=== PATIENT | female | born 1945 | race Caucasian/White ===

== ENCOUNTER 2016-06-06 09:49 | Inpatient (IN) | payer MEDICARE, OTHER ==
[~2016-06-06] VITALS: Ht 172.7 cm; Wt 74.2 kg
[~2016-06-06 09:49] MED LIST: ATOR40TA78 PO; CARV3.122 PO; CARV6.2512 PO; CLON0.5T PO; CYAN100028 PO; DOCU-30 PO; DOCU100C8 PO; ERTA1VIA IV; FERR325T20 PO; GABA600T2 PO; HYDR-3138 PO; HYDR-3240 PO; HYDR2VIA2 IV; INSU100C SQ-INSULIN; INSU100V5 SQ-INSULIN; L.AC1CAP6 PO; LEVO50TA PO; LINE600T7 PO; LOSA25TA2 PO; MELA3TAB37 PO; OMEP-110 PO; PANT40TA3 PO
[2016-06-06] MEDS ORDERED: SODIUM CHLORIDE 0.9% 1,000 ML IV ONE ×2 (09:55→12:15)
[2016-06-06] MEDS ORDERED: SODIUM CHLORIDE FLUSH 10ML SYR IVF ONE (10:00)
[2016-06-06] MEDS ORDERED: PLEASE ENTER HEIGHT AND WEIGHT MC SCH (10:00)
[2016-06-06] MEDS ORDERED: ATOR10TA PO (10:25)
[2016-06-06] MEDS ORDERED: CARV12.543 PO (10:26)
[2016-06-06] MEDS ORDERED: OXYC-302 PO (10:27)
[2016-06-06] MEDS ORDERED: CIPR500T3 PO (10:32)
[2016-06-06] MEDS ORDERED: GLIM1TAB2 PO (10:32)
[2016-06-06] MEDS ORDERED: LINA5TAB PO (10:32)
[2016-06-06] MEDS ORDERED: MAGN400T7 PO (10:33)
[2016-06-06] MEDS ORDERED: ASCO500T8 PO (10:33)
[2016-06-06] MEDS ORDERED: IBUP200T5 PO (10:37)
[2016-06-06 10:46] LABS: ASPARTATE AMINO TRANSFERASE 15 U/L (15-37); BLOOD UREA NITROGEN 24 mg/dL (7-18)
[2016-06-06] MEDS ORDERED: SODIUM CHLORIDE 0.9% 1,000ML IVBOLUS ONE (11:00)
[2016-06-06] MEDS ORDERED: CEFTRIAXONE PMX 1GM/50ML 50 ML IVPB ONE (12:00)
[2016-06-06] MEDS ORDERED: CEFTRIAXONE PMX 1GM/50ML 50 ML ONE (12:13)
[2016-06-06] MEDS ORDERED: SODIUM CHLORIDE FLUSH 10ML SYR IVF PRN (12:30)
[2016-06-06 15:10] VITALS: BP 119/68
[2016-06-06] MEDS ORDERED: PHARMACY MAY ADJ FOR RENAL FX MC PRN (16:30)
[2016-06-06] MEDS ORDERED: DEXTROSE 50%, 50ML SYRINGE IVPush PRN (17:00)
[2016-06-06] MEDS ORDERED: DEXTROSE 4 GM TAB.CHEW PO PRN (17:00)
[2016-06-06] MEDS ORDERED: HYDROcodone/APAP 5/325 TABLET PO PRN (17:00)
[2016-06-06] MEDS ORDERED: ONDANSETRON 2MG/ML, 2ML IVP PRN (17:00)
[2016-06-06] MEDS: INSULIN ASPART 100 UNITS/ML, PEN SQ-INSULIN SCH ×2 (17:00→21:00)
[2016-06-06] MEDS ORDERED: POLYETHYLENE GLYCOL 17 GM PACKET PO PRN (17:00)
[2016-06-06] MEDS ORDERED: GLUCAGON 1 MG IM PRN (17:00)
[2016-06-06] MEDS ORDERED: BISACODYL 10 MG SUPP PR PRN (17:00)
[2016-06-06] MEDS ORDERED: PROMETHAZINE 25 MG/ML, 1ML IM PRN (17:00)
[2016-06-06] MEDS: MEROPENEM 1 GM in SODIUM CHLORIDE 0.9% 100 ML IV SCH (17:58)
[2016-06-06] MEDS: SODIUM CHLORIDE 0.9% 1,000 ML IV SCH (17:58)
[2016-06-06 19:01] VITALS: BP 124/76
[2016-06-06] MEDS ORDERED: ATORVASTATIN 10 MG TABLET PO SCH (21:00)
[2016-06-06] MEDS: DAPTOMYCIN 300 MG in SODIUM CHLORIDE 0.9% 100 ML IVPB SCH (21:55)
[2016-06-06] MEDS: SODIUM CHLORIDE FLUSH 10ML SYR IVF SCH (21:56)
[2016-06-06] MEDS: GABAPENTIN 300 MG CAPSULE PO SCH (21:56)
[2016-06-06] MEDS: CARVEDILOL 12.5 MG TABLET PO SCH (21:56)
[2016-06-06] MEDS: FERROUS SULFATE 325 MG TABLET PO SCH (21:56)
[2016-06-06] MEDS: ASCORBIC ACID 500 MG TABLET PO SCH (21:56)
[2016-06-07 01:45] VITALS: BP 147/74
[2016-06-07] MEDS: SODIUM CHLORIDE 0.9% 1,000 ML IV SCH ×2 (02:57→17:06)
[2016-06-07] MEDS: MEROPENEM 1 GM in SODIUM CHLORIDE 0.9% 100 ML IV SCH ×3 (02:57→20:59)
[2016-06-07] MEDS: LEVOTHYROXINE 50 MCG TABLET PO SCH (05:52)
[2016-06-07 06:15] LABS: ASPARTATE AMINO TRANSFERASE 21 U/L (15-37); BLOOD UREA NITROGEN 20 mg/dL (7-18)
[2016-06-07] MEDS: INSULIN ASPART 100 UNITS/ML, PEN SQ-INSULIN SCH ×4 (07:30→21:00)
[2016-06-07 08:06] VITALS: BP 130/62
[2016-06-07] MEDS: FERROUS SULFATE 325 MG TABLET PO SCH ×2 (09:43→20:59)
[2016-06-07] MEDS: GABAPENTIN 300 MG CAPSULE PO SCH ×2 (09:43→20:59)
[2016-06-07] MEDS: SODIUM CHLORIDE FLUSH 10ML SYR IVF SCH ×2 (09:44→21:00)
[2016-06-07] MEDS: CARVEDILOL 12.5 MG TABLET PO SCH ×2 (09:44→20:59)
[2016-06-07] MEDS: ASCORBIC ACID 500 MG TABLET PO SCH ×2 (09:44→21:00)
[2016-06-07 13:19] VITALS: BP 127/70
[2016-06-07 19:11] VITALS: BP 164/72
[2016-06-08] MEDS: SODIUM CHLORIDE 0.9% 1,000 ML IV SCH ×2 (01:18→12:30)
[2016-06-08 04:34] VITALS: BP 157/73
[2016-06-08] MEDS: MEROPENEM 1 GM in SODIUM CHLORIDE 0.9% 100 ML IV SCH ×2 (05:21→13:03)
[2016-06-08] MEDS: LEVOTHYROXINE 50 MCG TABLET PO SCH (05:21)
[2016-06-08 06:13] LABS: BLOOD UREA NITROGEN 19 mg/dL (7-18)
[2016-06-08] MEDS: INSULIN ASPART 100 UNITS/ML, PEN SQ-INSULIN SCH ×4 (07:00→21:00)
[2016-06-08 08:33] VITALS: BP 174/80
[2016-06-08] MEDS: FERROUS SULFATE 325 MG TABLET PO SCH ×2 (08:49→21:43)
[2016-06-08] MEDS: CARVEDILOL 12.5 MG TABLET PO SCH (08:50)
[2016-06-08] MEDS: GABAPENTIN 300 MG CAPSULE PO SCH ×2 (08:50→21:43)
[2016-06-08] MEDS: ASCORBIC ACID 500 MG TABLET PO SCH ×2 (08:50→21:43)
[2016-06-08] MEDS: SODIUM CHLORIDE FLUSH 10ML SYR IVF SCH ×2 (08:51→21:43)
[2016-06-08 15:45] VITALS: BP 175/76
[2016-06-08] MEDS: DAPTOMYCIN 300 MG in SODIUM CHLORIDE 0.9% 100 ML IVPB SCH (17:32)
[2016-06-08] MEDS: CARVEDILOL 25 MG TABLET PO SCH (18:39)
[2016-06-08 19:45] VITALS: BP 179/78
[2016-06-08] MEDS: MICAFUNGIN 100 MG in SODIUM CHLORIDE 0.9% 100 ML IV SCH (21:42)
[2016-06-08 23:18] VITALS: BP 166/77
[2016-06-09 01:39] VITALS: BP 135/74
[2016-06-09] MEDS: LEVOTHYROXINE 50 MCG TABLET PO SCH (05:14)
[2016-06-09] MEDS: CARVEDILOL 25 MG TABLET PO SCH ×2 (05:14→17:05)
[2016-06-09 05:40] LABS: BLOOD UREA NITROGEN 17 mg/dL (7-18)
[2016-06-09 07:13] VITALS: BP 131/80
[2016-06-09] MEDS: INSULIN ASPART 100 UNITS/ML, PEN SQ-INSULIN SCH ×4 (08:30→22:00)
[2016-06-09] MEDS: FERROUS SULFATE 325 MG TABLET PO SCH ×2 (09:21→21:04)
[2016-06-09] MEDS: ASCORBIC ACID 500 MG TABLET PO SCH ×2 (09:21→21:04)
[2016-06-09] MEDS: GABAPENTIN 300 MG CAPSULE PO SCH ×2 (09:21→21:04)
[2016-06-09] MEDS: SODIUM CHLORIDE FLUSH 10ML SYR IVF SCH ×2 (09:21→21:04)
[2016-06-09 13:53] VITALS: BP 133/84
[2016-06-09 18:40] VITALS: BP 134/78
[2016-06-09] MEDS: MICAFUNGIN 100 MG in SODIUM CHLORIDE 0.9% 100 ML IV SCH (21:04)
[2016-06-10 01:41] VITALS: BP 150/79
[2016-06-10] MEDS: LEVOTHYROXINE 50 MCG TABLET PO SCH (05:42)
[2016-06-10] MEDS: CARVEDILOL 25 MG TABLET PO SCH ×2 (05:43→18:21)
[2016-06-10 06:54] VITALS: BP 148/82
[2016-06-10] MEDS: INSULIN ASPART 100 UNITS/ML, PEN SQ-INSULIN SCH ×4 (07:00→20:34)
[2016-06-10] MEDS: ASCORBIC ACID 500 MG TABLET PO SCH ×2 (08:26→20:33)
[2016-06-10] MEDS: FERROUS SULFATE 325 MG TABLET PO SCH ×2 (08:26→20:33)
[2016-06-10] MEDS: GABAPENTIN 300 MG CAPSULE PO SCH ×2 (08:26→20:33)
[2016-06-10] MEDS: SODIUM CHLORIDE FLUSH 10ML SYR IVF SCH ×2 (08:27→20:34)
[2016-06-10 12:44] VITALS: BP 143/86
[2016-06-10] MEDS: VANCOMYCIN 50 MG/ML ORAL SUSP PO SCH ×2 (15:05→20:33)
[2016-06-10 19:00] VITALS: BP 138/68
[2016-06-10] MEDS: DAPTOMYCIN 300 MG in SODIUM CHLORIDE 0.9% 100 ML IVPB SCH (20:33)
[2016-06-11 02:13] VITALS: BP 146/79
[2016-06-11] MEDS: VANCOMYCIN 50 MG/ML ORAL SUSP PO SCH ×4 (04:10→22:45)
[2016-06-11] MEDS: LEVOTHYROXINE 50 MCG TABLET PO SCH (06:05)
[2016-06-11] MEDS: CARVEDILOL 25 MG TABLET PO SCH ×2 (06:06→18:38)
[2016-06-11 06:38] VITALS: BP 140/70
[2016-06-11] MEDS: INSULIN ASPART 100 UNITS/ML, PEN SQ-INSULIN SCH ×4 (07:00→21:00)
[2016-06-11] MEDS: ASCORBIC ACID 500 MG TABLET PO SCH ×2 (10:03→22:45)
[2016-06-11] MEDS: GABAPENTIN 300 MG CAPSULE PO SCH ×2 (10:04→22:45)
[2016-06-11] MEDS: FERROUS SULFATE 325 MG TABLET PO SCH ×2 (10:04→22:45)
[2016-06-11] MEDS: FLUCONAZOLE 200 MG TABLET PO SCH (10:05)
[2016-06-11] MEDS: SODIUM CHLORIDE FLUSH 10ML SYR IVF SCH ×2 (10:06→22:45)
[2016-06-11 12:46] VITALS: BP 153/76
[2016-06-11] MEDS: ENOXAPARIN 40 MG/0.4 ML SQ SCH (15:53)
[2016-06-12] MEDS: VANCOMYCIN 50 MG/ML ORAL SUSP PO SCH ×4 (03:30→20:18)
[2016-06-12 04:30] VITALS: BP 149/77
[2016-06-12] MEDS: CARVEDILOL 25 MG TABLET PO SCH ×2 (05:15→17:30)
[2016-06-12] MEDS: LEVOTHYROXINE 50 MCG TABLET PO SCH (05:15)
[2016-06-12 06:57] VITALS: BP 105/65
[2016-06-12] MEDS: INSULIN ASPART 100 UNITS/ML, PEN SQ-INSULIN SCH ×4 (07:00→20:17)
[2016-06-12 07:04] LABS: ASPARTATE AMINO TRANSFERASE 18 U/L (15-37); BLOOD UREA NITROGEN 17 mg/dL (7-18); C-REACTIVE PROTEIN, QUANT 0.56 mg/dL (0.02-0.49)
[2016-06-12] MEDS: GABAPENTIN 300 MG CAPSULE PO SCH ×2 (08:24→20:18)
[2016-06-12] MEDS: FLUCONAZOLE 200 MG TABLET PO SCH (08:25)
[2016-06-12] MEDS: FERROUS SULFATE 325 MG TABLET PO SCH ×2 (08:25→20:18)
[2016-06-12] MEDS: ASCORBIC ACID 500 MG TABLET PO SCH ×2 (08:25→20:18)
[2016-06-12] MEDS: SODIUM CHLORIDE FLUSH 10ML SYR IVF SCH ×2 (08:28→20:18)
[2016-06-12 12:49] VITALS: BP 154/75
[2016-06-12] MEDS ORDERED: POTASSIUM CHLORIDE 20 MEQ TAB.ER.PRT PO ONE (13:30)
[2016-06-12] MEDS: ENOXAPARIN 40 MG/0.4 ML SQ SCH (15:37)
[2016-06-12 19:49] VITALS: BP 136/77
[2016-06-12] MEDS: DAPTOMYCIN 300 MG in SODIUM CHLORIDE 0.9% 100 ML IVPB SCH (20:08)
[2016-06-13 02:13] VITALS: BP 166/83
[2016-06-13] MEDS: VANCOMYCIN 50 MG/ML ORAL SUSP PO SCH ×4 (03:37→21:32)
[2016-06-13 04:01] LABS: BLOOD UREA NITROGEN 24 mg/dL (7-18)
[2016-06-13] MEDS: CARVEDILOL 25 MG TABLET PO SCH ×2 (06:05→18:26)
[2016-06-13] MEDS: LEVOTHYROXINE 50 MCG TABLET PO SCH (06:05)
[2016-06-13] MEDS: SODIUM CHLORIDE 0.9% 1,000 ML IV SCH ×2 (07:30→21:24)
[2016-06-13 07:42] VITALS: BP 158/78
[2016-06-13] MEDS: ASCORBIC ACID 500 MG TABLET PO SCH ×2 (08:27→21:32)
[2016-06-13] MEDS: GABAPENTIN 300 MG CAPSULE PO SCH ×2 (08:27→21:32)
[2016-06-13] MEDS: FERROUS SULFATE 325 MG TABLET PO SCH ×2 (08:27→21:32)
[2016-06-13] MEDS: FLUCONAZOLE 200 MG TABLET PO SCH (08:27)
[2016-06-13] MEDS: INSULIN ASPART 100 UNITS/ML, PEN SQ-INSULIN SCH ×4 (08:45→21:33)
[2016-06-13] MEDS: SODIUM CHLORIDE FLUSH 10ML SYR IVF SCH ×2 (09:00→21:00)
[2016-06-13] MEDS ORDERED: PENICILLIN VK 250 MG PO ONE (10:00)
[2016-06-13] MEDS ORDERED: HYDROCORTISONE 100 MG INJ. IVPush ONE (13:00)
[2016-06-13] MEDS ORDERED: DIPHENHYDRAMINE 50 MG/ML, 1ML IVPush ONE ×2 (13:00)
[2016-06-13 13:12] VITALS: BP 127/78
[2016-06-13] MEDS: ENOXAPARIN 40 MG/0.4 ML SQ SCH (16:57)
[2016-06-13] MEDS: AMPICILLIN/SULBACTAM 3 GM in SODIUM CHLORIDE 0.9% 100 ML IV SCH ×2 (16:57→21:33)
[2016-06-13 19:20] VITALS: BP 166/88
[2016-06-14 02:13] VITALS: BP 145/74
[2016-06-14 03:05] LABS: BLOOD UREA NITROGEN 26 mg/dL (7-18)
[2016-06-14] MEDS: LEVOTHYROXINE 50 MCG TABLET PO SCH (05:38)
[2016-06-14] MEDS: VANCOMYCIN 50 MG/ML ORAL SUSP PO SCH ×4 (05:38→20:35)
[2016-06-14] MEDS: CARVEDILOL 25 MG TABLET PO SCH ×2 (05:38→17:25)
[2016-06-14] MEDS: SODIUM CHLORIDE 0.9% 1,000 ML IV SCH (05:38)
[2016-06-14] MEDS: AMPICILLIN/SULBACTAM 3 GM in SODIUM CHLORIDE 0.9% 100 ML IV SCH ×3 (05:38→22:30)
[2016-06-14] MEDS: INSULIN ASPART 100 UNITS/ML, PEN SQ-INSULIN SCH ×4 (08:21→20:36)
[2016-06-14 08:24] VITALS: BP 163/81
[2016-06-14] MEDS: GABAPENTIN 300 MG CAPSULE PO SCH ×2 (08:48→20:35)
[2016-06-14] MEDS: FERROUS SULFATE 325 MG TABLET PO SCH ×2 (08:48→20:39)
[2016-06-14] MEDS: FLUCONAZOLE 200 MG TABLET PO SCH (08:48)
[2016-06-14] MEDS: SODIUM CHLORIDE FLUSH 10ML SYR IVF SCH ×2 (08:48→20:35)
[2016-06-14] MEDS: ASCORBIC ACID 500 MG TABLET PO SCH ×2 (08:49→20:35)
[2016-06-14 14:00] VITALS: BP 131/80
[2016-06-14] MEDS: ENOXAPARIN 40 MG/0.4 ML SQ SCH (17:25)
[2016-06-14 20:12] VITALS: BP 123/65
[2016-06-15 01:38] VITALS: BP 134/52
[2016-06-15] MEDS: VANCOMYCIN 50 MG/ML ORAL SUSP PO SCH ×4 (02:57→20:51)
[2016-06-15] MEDS: CARVEDILOL 25 MG TABLET PO SCH ×2 (06:09→17:49)
[2016-06-15] MEDS: LEVOTHYROXINE 50 MCG TABLET PO SCH (06:11)
[2016-06-15] MEDS: AMPICILLIN/SULBACTAM 3 GM in SODIUM CHLORIDE 0.9% 100 ML IV SCH ×3 (06:11→22:36)
[2016-06-15 06:37] LABS: BLOOD UREA NITROGEN 27 mg/dL (7-18)
[2016-06-15] MEDS ORDERED: SODIUM CHLORIDE 0.9% 1,000 ML IV SCH (07:30)
[2016-06-15] MEDS: INSULIN ASPART 100 UNITS/ML, PEN SQ-INSULIN SCH ×4 (07:41→20:50)
[2016-06-15 07:48] VITALS: BP 120/76
[2016-06-15] MEDS: GABAPENTIN 300 MG CAPSULE PO SCH ×2 (07:50→20:50)
[2016-06-15] MEDS: FLUCONAZOLE 200 MG TABLET PO SCH (07:50)
[2016-06-15] MEDS: FERROUS SULFATE 325 MG TABLET PO SCH ×2 (07:50→20:49)
[2016-06-15] MEDS: ASCORBIC ACID 500 MG TABLET PO SCH ×2 (07:51→20:50)
[2016-06-15] MEDS: SODIUM CHLORIDE FLUSH 10ML SYR IVF SCH ×2 (07:53→20:49)
[2016-06-15] MEDS: SODIUM CHLORIDE 0.9% 1,000 ML IV SCH (12:35)
[2016-06-15 12:46] VITALS: BP 160/91
[2016-06-15] MEDS ORDERED: ENOXAPARIN 30 MG/0.3 ML SQ SCH (17:00)
[2016-06-15 19:58] VITALS: BP 150/78
[2016-06-16 01:42] VITALS: BP_SYST 175; BP_SYST 186; BP_DIAS 82; BP_DIAS 88
[2016-06-16] MEDS: SODIUM CHLORIDE 0.9% 1,000 ML IV SCH ×3 (02:19→18:10)
[2016-06-16] MEDS: VANCOMYCIN 50 MG/ML ORAL SUSP PO SCH ×4 (02:21→21:30)
[2016-06-16 02:49] LABS: BLOOD UREA NITROGEN 24 mg/dL (7-18)
[2016-06-16] MEDS: CARVEDILOL 25 MG TABLET PO SCH ×2 (05:24→17:35)
[2016-06-16] MEDS: AMPICILLIN/SULBACTAM 3 GM in SODIUM CHLORIDE 0.9% 100 ML IV SCH ×3 (05:24→23:38)
[2016-06-16] MEDS: LEVOTHYROXINE 50 MCG TABLET PO SCH (05:24)
[2016-06-16] MEDS: INSULIN ASPART 100 UNITS/ML, PEN SQ-INSULIN SCH ×4 (07:00→21:00)
[2016-06-16 07:51] VITALS: BP 170/86
[2016-06-16] MEDS: SODIUM CHLORIDE FLUSH 10ML SYR IVF SCH ×2 (09:00→21:30)
[2016-06-16] MEDS: GABAPENTIN 300 MG CAPSULE PO SCH ×2 (09:20→21:31)
[2016-06-16] MEDS: FERROUS SULFATE 325 MG TABLET PO SCH ×2 (09:21→21:31)
[2016-06-16] MEDS: FLUCONAZOLE 200 MG TABLET PO SCH (09:21)
[2016-06-16] MEDS: ASCORBIC ACID 500 MG TABLET PO SCH ×2 (09:21→21:31)
[2016-06-16 14:19] VITALS: BP 164/82
[2016-06-16] MEDS: ENOXAPARIN 40 MG/0.4 ML SQ SCH (17:35)
[2016-06-16 19:24] VITALS: BP 122/71
[2016-06-17] MEDS: SODIUM CHLORIDE 0.9% 1,000 ML IV SCH ×4 (01:43→21:38)
[2016-06-17 01:46] VITALS: BP_SYST 189; BP_SYST 192; BP_DIAS 84; BP_DIAS 92
[2016-06-17] MEDS: LABETALOL 5MG/ML, 20ML IVPush PRN ×2 (04:02→21:39)
[2016-06-17] MEDS: VANCOMYCIN 50 MG/ML ORAL SUSP PO SCH ×4 (04:06→21:39)
[2016-06-17 05:21] LABS: BLOOD UREA NITROGEN 21 mg/dL (7-18)
[2016-06-17] MEDS: LEVOTHYROXINE 50 MCG TABLET PO SCH (06:19)
[2016-06-17] MEDS: CARVEDILOL 25 MG TABLET PO SCH ×2 (06:19→17:31)
[2016-06-17 06:23] VITALS: BP 173/80
[2016-06-17 06:43] VITALS: BP 191/86
[2016-06-17] MEDS: INSULIN ASPART 100 UNITS/ML, PEN SQ-INSULIN SCH ×4 (07:00→21:00)
[2016-06-17] MEDS: AMPICILLIN/SULBACTAM 3 GM in SODIUM CHLORIDE 0.9% 100 ML IV SCH ×3 (08:27→23:22)
[2016-06-17] MEDS: ASCORBIC ACID 500 MG TABLET PO SCH ×2 (08:27→21:39)
[2016-06-17] MEDS: FLUCONAZOLE 200 MG TABLET PO SCH (08:28)
[2016-06-17] MEDS: FERROUS SULFATE 325 MG TABLET PO SCH ×2 (08:28→21:39)
[2016-06-17] MEDS: GABAPENTIN 300 MG CAPSULE PO SCH ×2 (08:28→21:39)
[2016-06-17] MEDS: SODIUM CHLORIDE FLUSH 10ML SYR IVF SCH ×2 (08:28→21:38)
[2016-06-17 14:20] VITALS: BP 184/80
[2016-06-17] MEDS: ENOXAPARIN 40 MG/0.4 ML SQ SCH (16:12)
[2016-06-17 19:45] VITALS: BP 190/99
[2016-06-17 23:25] VITALS: BP 190/83
[2016-06-18] MEDS ORDERED: hydrALAzine 20 MG/ML, 1ML IV ONE
[2016-06-18 01:59] VITALS: BP 175/85
[2016-06-18] MEDS: VANCOMYCIN 50 MG/ML ORAL SUSP PO SCH ×4 (03:16→20:16)
[2016-06-18 05:01] LABS: BLOOD UREA NITROGEN 19 mg/dL (7-18)
[2016-06-18] MEDS: SODIUM CHLORIDE 0.9% 1,000 ML IV SCH (05:23)
[2016-06-18] MEDS: LEVOTHYROXINE 50 MCG TABLET PO SCH (05:24)
[2016-06-18] MEDS: CARVEDILOL 25 MG TABLET PO SCH ×2 (05:24→17:48)
[2016-06-18] MEDS: INSULIN ASPART 100 UNITS/ML, PEN SQ-INSULIN SCH ×4 (07:00→20:15)
[2016-06-18 07:16] VITALS: BP 141/68
[2016-06-18] MEDS: SODIUM CHLORIDE FLUSH 10ML SYR IVF SCH ×2 (07:54→20:16)
[2016-06-18] MEDS: AMPICILLIN/SULBACTAM 3 GM in SODIUM CHLORIDE 0.9% 100 ML IV SCH ×3 (07:54→23:42)
[2016-06-18] MEDS: FERROUS SULFATE 325 MG TABLET PO SCH ×2 (09:14→20:16)
[2016-06-18] MEDS: GABAPENTIN 300 MG CAPSULE PO SCH ×2 (09:14→20:16)
[2016-06-18] MEDS: FLUCONAZOLE 200 MG TABLET PO SCH (09:14)
[2016-06-18] MEDS: ASCORBIC ACID 500 MG TABLET PO SCH ×2 (09:15→20:17)
[2016-06-18 12:37] VITALS: BP 142/84
[2016-06-18] MEDS: ENOXAPARIN 40 MG/0.4 ML SQ SCH (17:00)
[2016-06-18 19:45] VITALS: BP 153/82
[2016-06-19 02:22] VITALS: BP 174/91
[2016-06-19 04:00] VITALS: BP 168/90
[2016-06-19] MEDS: VANCOMYCIN 50 MG/ML ORAL SUSP PO SCH ×4 (04:34→20:28)
[2016-06-19 04:50] LABS: BLOOD UREA NITROGEN 25 mg/dL (7-18)
[2016-06-19] MEDS: CARVEDILOL 25 MG TABLET PO SCH ×2 (05:41→18:02)
[2016-06-19] MEDS: LEVOTHYROXINE 50 MCG TABLET PO SCH (05:42)
[2016-06-19] MEDS: INSULIN ASPART 100 UNITS/ML, PEN SQ-INSULIN SCH ×4 (07:00→20:29)
[2016-06-19 07:15] VITALS: BP 158/76
[2016-06-19] MEDS: SODIUM CHLORIDE FLUSH 10ML SYR IVF SCH ×2 (09:00→20:28)
[2016-06-19] MEDS: GABAPENTIN 300 MG CAPSULE PO SCH ×2 (09:02→20:28)
[2016-06-19] MEDS: AMPICILLIN/SULBACTAM 3 GM in SODIUM CHLORIDE 0.9% 100 ML IV SCH ×2 (09:02→15:21)
[2016-06-19] MEDS: FLUCONAZOLE 200 MG TABLET PO SCH (09:03)
[2016-06-19] MEDS: ASCORBIC ACID 500 MG TABLET PO SCH ×2 (09:03→20:28)
[2016-06-19] MEDS: FERROUS SULFATE 325 MG TABLET PO SCH ×2 (09:03→20:28)
[2016-06-19 12:36] VITALS: BP 114/21
[2016-06-19] MEDS: ENOXAPARIN 40 MG/0.4 ML SQ SCH (17:00)
[2016-06-19 18:02] VITALS: BP 133/71
[2016-06-19 20:39] VITALS: BP 145/76
[2016-06-20] MEDS: AMPICILLIN/SULBACTAM 3 GM in SODIUM CHLORIDE 0.9% 100 ML IV SCH ×2 (00:03→08:07)
[2016-06-20 00:23] VITALS: BP 152/85
[2016-06-20] MEDS: VANCOMYCIN 50 MG/ML ORAL SUSP PO SCH ×2 (03:17→08:08)
[2016-06-20] MEDS: LEVOTHYROXINE 50 MCG TABLET PO SCH (06:01)
[2016-06-20] MEDS: CARVEDILOL 25 MG TABLET PO SCH ×2 (06:01→17:44)
[2016-06-20] MEDS: INSULIN ASPART 100 UNITS/ML, PEN SQ-INSULIN SCH ×4 (07:00→20:00)
[2016-06-20 07:25] VITALS: BP 151/75
[2016-06-20] MEDS: FLUCONAZOLE 200 MG TABLET PO SCH (08:07)
[2016-06-20] MEDS: GABAPENTIN 300 MG CAPSULE PO SCH ×2 (08:07→19:58)
[2016-06-20] MEDS: FERROUS SULFATE 325 MG TABLET PO SCH ×2 (08:07→19:58)
[2016-06-20] MEDS: SODIUM CHLORIDE FLUSH 10ML SYR IVF SCH ×2 (08:09→20:00)
[2016-06-20] MEDS: ASCORBIC ACID 500 MG TABLET PO SCH ×2 (08:13→20:00)
[2016-06-20 13:07] VITALS: BP 147/75
[2016-06-20] MEDS: AMOXICILLIN 500 MG CAPSULE PO SCH ×2 (14:22→19:58)
[2016-06-20] MEDS: ENOXAPARIN 40 MG/0.4 ML SQ SCH ×2 (17:00→17:44)
[2016-06-20] MEDS ORDERED: CARV25TA12 PO (18:57)
[2016-06-20] MEDS ORDERED: AMOX-291 PO (18:57)
[2016-06-20] MEDS ORDERED: VANC1VIA3 PO (18:57)
[2016-06-20] MEDS ORDERED: VANCOMYCIN 50 MG/ML ORAL SUSP PO SCH (21:00)
== END 2016-06-20 20:40 | disposition home health service (06) | DRG 871 ==
LOC: ED 11:58 → EDIP 12:15 → 3NE 14:11 → 4EST 19:40
PROVIDERS: ADMIT Internal Medicine; ATTEND Family Medicine
PROC: 02HV33Z Insertion of Infusion Device into Superior Vena Cava, Percutaneous Approach (ICD-10-PCS; principal; 2016-06-07)
PROC: B548ZZA Ultrasonography of Superior Vena Cava, Guidance (ICD-10-PCS; 2016-06-07)
DX: A41.9 Sepsis, unspecified organism (principal); G93.41 Metabolic encephalopathy; J96.01 Acute respiratory failure with hypoxia; Q21.1 Atrial septal defect; N17.9 Acute kidney failure, unspecified; I50.22 Chronic systolic (congestive) heart failure; A04.7 Enterocolitis due to Clostridium difficile; I13.0 Hypertensive heart and chronic kidney disease with heart failure and stage 1 through stage 4 chronic kidney disease, or unspecified chronic kidney disease; I42.9 Cardiomyopathy, unspecified; N10 Acute pyelonephritis; N13.6 Pyonephrosis; E78.5 Hyperlipidemia, unspecified; E89.0 Postprocedural hypothyroidism; G47.33 Obstructive sleep apnea (adult) (pediatric); I25.10 Atherosclerotic heart disease of native coronary artery without angina pectoris; D53.9 Nutritional anemia, unspecified; E11.22 Type 2 diabetes mellitus with diabetic chronic kidney disease; E11.65 Type 2 diabetes mellitus with hyperglycemia; J44.9 Chronic obstructive pulmonary disease, unspecified; K21.9 Gastro-esophageal reflux disease without esophagitis; N18.3 Chronic kidney disease, stage 3 (moderate); Z16.24 Resistance to multiple antibiotics; I95.9 Hypotension, unspecified; B95.2 Enterococcus as the cause of diseases classified elsewhere; Z16.21 Resistance to vancomycin; T50.2X5A Adverse effect of carbonic-anhydrase inhibitors, benzothiadiazides and other diuretics, initial encounter; R65.20 Severe sepsis without septic shock; Z16.19 Resistance to other specified beta lactam antibiotics; Z79.899 Other long term (current) drug therapy; Z87.440 Personal history of urinary (tract) infections; Z87.442 Personal history of urinary calculi; I25.2 Old myocardial infarction; Z87.891 Personal history of nicotine dependence; Z88.0 Allergy status to penicillin; Z93.6 Other artificial openings of urinary tract status; Z90.89 Acquired absence of other organs; Z90.49 Acquired absence of other specified parts of digestive tract; Z88.1 Allergy status to other antibiotic agents; Z98.42 Cataract extraction status, left eye; Z98.41 Cataract extraction status, right eye; Z90.722 Acquired absence of ovaries, bilateral
CPT/HCPCS: 36415; 36569; 71010; 74176; 76770; 76937; 77001; 80048; 80053; 81001; 82607; 82746; 82962; 83605; 83735; 84100; 84145; 84443; 85025; 85610; 85651; 85730; 86140; 87040; 87077; 87086; 87106; 87186; 87324; 93005; 96361; 96365; J0295; J0696; J0878; J1650; J1815; J2185; J2248; J3370; C1751; J0360; J1200; J7030; J7512